=== PATIENT | female | born 1945 | race Caucasian/White ===

== ENCOUNTER 2022-12-03 11:45 | Emergency (ER) | payer MEDICARE, BC ==
[~2022-12-03] VITALS: Ht 152.4 cm; Wt 66.0 kg
[~2022-12-03 11:45] MED LIST: AMLO5TAB16 PO; APIX5TAB3 PO; FAMO20TA10 PO; LORA10TA7 PO; ONDA-103; POTA-207 PO
[2022-12-03 12:26] VITALS: BP 115/76; PULSE 66; TEMP 97.9; O2SAT 100
[2022-12-03] MEDS ORDERED: acetaminophen 325mg tablet PO STA (14:30)
[2022-12-03] MEDS ORDERED: ondansetron/PF 4mg/2ml inj IV ONE (14:40)
[2022-12-03] MEDS ORDERED: morphine 4 MG/ML inj SYRINge IV ONE (14:40)
[2022-12-03] MEDS: normal saline 500ml IV soln 500 ML IV SCH ×2 (15:07→16:30)
[2022-12-03 15:08] VITALS: RESP 16
[2022-12-03 15:50] LABS: BASOPHILS # (AUTO) 0.1 X10'3 (0-0.2); BASOPHILS % (AUTO) 0.7 % (0-1); EOSINOPHILS # (AUTO) 0.3 X10'3 (0-0.9); EOSINOPHILS % (AUTO) 3.1 % (0-6); HEMATOCRIT 31.6 % (35.0-45.0); HEMOGLOBIN 10.6 g/dl (12.0-16.0); LYMPHOCYTES # (AUTO) 2.4 X10'3 (1.1-4.8); LYMPHOCYTES % (AUTO) 28.2 % (21-51); MEAN CORPUSCULAR HEMOGLOBIN 31.5 PG (27.0-31.0); MEAN CORPUSCULAR HGB CONC 33.7 g/dL (33.0-36.5); MEAN CORPUSCULAR VOLUME 93.6 FL (78-98); MEAN PLATELET VOLUME 7.3 FL (7.4-10.4); MONOCYTES # (AUTO) 0.6 X10'3 (0-0.9); MONOCYTES % (AUTO) 7.1 % (2-12); NEUTROPHILS # (AUTO) 5.2 X10'3 (1.8-7.7); NEUTROPHILS % (AUTO) 60.9 % (42-75); PLATELET COUNT 172 X10'3 (140-440); RED BLOOD COUNT 3.38 X10'6 (4.20-5.60); RED CELL DISTRIBUTION WIDTH 15.5 % (11.5-14.5); WHITE BLOOD COUNT 8.6 X10'3 (4.5-11.0)
[2022-12-03 16:00] LABS: ALANINE AMINOTRANSFERASE 15 U/L (12-78); ALBUMIN 2.9 G/DL (3.4-5.0); ALBUMIN/GLOBULIN RATIO 0.6 (1.1-1.5); ALKALINE PHOSPHATASE 97 IU/L (46-116); ANION GAP 8 (8-16); ASPARTATE AMINO TRANSFERASE 20 U/L (10-37); BILIRUBIN,TOTAL 0.2 MG/DL (0.1-1.0); BLOOD UREA NITROGEN 24 MG/DL (7-18); CALCIUM 10.5 MG/DL (8.5-10.1); CHLORIDE 99 MMOL/L (99-107); CREATININE 1.72 MG/DL (0.40-0.90); GLUCOSE 99 MG/DL (70-104); MAGNESIUM 1.7 MG/DL (1.5-2.4); SODIUM 131 MMOL/L (135-145); TOTAL PROTEIN 7.4 G/DL (6.4-8.2); eCRCL 20 ML/MIN; eGFR 29 ML/MIN
[2022-12-03] MEDS ORDERED: normal saline 1000ML IV soln IVB ONE (16:30)
== END 2022-12-03 18:17 | disposition home or self-care (01) ==
LOC: ER 11:46
DX: K63.2 Fistula of intestine (principal)
CPT/HCPCS: 36415; 80053; 83605; 83735; 84145; 85025; 87040; 96374; 96375; 99284; J2270; J2405; J7030; J7040; A4398; A4421; A6449

== ENCOUNTER 2023-07-12 19:26 | Inpatient (IN) | payer MEDICARE, BC ==
[~2023-07-12] VITALS: Ht 167.6 cm; Wt 64.0 kg
[2023-07-12] VITALS (8 sets, daily range): BP systolic 68–121; BP diastolic 36–51; PULSE 69–82; RESP 16–20; TEMP 98–98.6
[~2023-07-12 19:26] MED LIST changes: +ADAL40SY SUBCUT; -AMLO5TAB16 PO; -APIX5TAB3 PO; +DOCU-148 PO; -FAMO20TA10 PO; -LORA10TA7 PO; -ONDA-103; +PANT40TA54 PO; -POTA-207 PO; +PROP20TA6 PO; +SODI100035 PO
[2023-07-12 20:38] LABS: LYMPHOCYTES # (AUTO) 2.5 X10'3 (1.1-4.8); NEUTROPHILS # (AUTO) 6.1 X10'3 (1.8-7.7); PLATELET COUNT 230 X10'3 (140-440); WHITE BLOOD COUNT 9.4 X10'3 (4.5-11.0)
[2023-07-12 20:40] LABS: BASOPHILS # (AUTO) 0.1 X10'3 (0-0.2); BASOPHILS % (AUTO) 1.4 % (0-1); EOSINOPHILS # (AUTO) 0.4 X10'3 (0-0.9); EOSINOPHILS % (AUTO) 3.8 % (0-6); LYMPHOCYTES % (AUTO) 26.2 % (21-51); MEAN CORPUSCULAR HEMOGLOBIN 31.3 PG (27.0-31.0); MEAN CORPUSCULAR HGB CONC 33.8 g/dL (33.0-36.5); MEAN CORPUSCULAR VOLUME 92.5 FL (78-98); MEAN PLATELET VOLUME 7.1 FL (7.4-10.4); MONOCYTES # (AUTO) 0.3 X10'3 (0-0.9); MONOCYTES % (AUTO) 3.2 % (2-12); NEUTROPHILS % (AUTO) 65.4 % (42-75); RED BLOOD COUNT 2.11 X10'6 (4.20-5.60); RED CELL DISTRIBUTION WIDTH 14.8 % (11.5-14.5)
[2023-07-12 20:49] LABS: APTT 34 SECONDS (22-32); INR 1.2 INR; PROTHROMBIN TIME 12.7 SECONDS (9.0-12.0)
[2023-07-12 20:54] LABS: ALANINE AMINOTRANSFERASE 8 U/L (12-78); ALBUMIN 2.1 G/DL (3.4-5.0); ALBUMIN/GLOBULIN RATIO 0.7 (1.1-1.5); ALKALINE PHOSPHATASE 55 IU/L (46-116); ANION GAP 6 (8-16); ASPARTATE AMINO TRANSFERASE 10 U/L (10-37); BILIRUBIN,TOTAL 0.4 MG/DL (0.1-1.0); BLOOD UREA NITROGEN 55 MG/DL (7-18); BUN/CREATININE RATIO 30.9 (10.0-20.0); CALCIUM 8.1 MG/DL (8.5-10.1); CHLORIDE 104 MMOL/L (99-107); CREATININE 1.78 MG/DL (0.40-0.90); GLUCOSE 154 MG/DL (70-104); SODIUM 132 MMOL/L (135-145); TOTAL CARBON DIOXIDE 21.8 MMOL/L (24-32); TOTAL PROTEIN 5.3 G/DL (6.4-8.2); eGFR 28 ML/MIN
[2023-07-12 21:01] LABS: HEMATOCRIT 19.5 % (35.0-45.0); HEMOGLOBIN 6.6 g/dl (12.0-16.0)
[2023-07-12] MEDS ORDERED: pantoprazole 40mg IV 80 MG in normal saline 100ml IV soln 100 ML IV ONE (22:45)
[2023-07-12] MEDS: pantoprazole 40 MG vial IV ONE (22:50)
[2023-07-12 23:03] LABS: TOTAL CELLS COUNTED 100
[2023-07-12 23:05] LABS: PLATELET ESTIMATE NORMAL; TEAR DROP CELLS FEW
[2023-07-12] MEDS ORDERED: magnesium hydroxide 30ml (MOM) UD suspension PO PRN (23:15)
[2023-07-12] MEDS ORDERED: magnesium Cl slow-release 64mg tablet PO PRN (23:15)
[2023-07-12] MEDS ORDERED: potassium Cl 20 mEq SR tablet PO PRN ×2 (23:15)
[2023-07-12] MEDS ORDERED: acetaminophen 325mg tablet PO PRN ×2 (23:15)
[2023-07-12] MEDS ORDERED: magnesium 4gm in 100ml NS 100 ML IV PRN (23:15)
[2023-07-12] MEDS ORDERED: magnesium 2GM in 50ml NS 50 ML IV PRN (23:15)
[2023-07-12] MEDS ORDERED: morphine 2 MG/ML inj. syringe IV PRN (23:15)
[2023-07-12] MEDS ORDERED: metoclopramide 5 mg/ml inj IV PRN (23:15)
[2023-07-12] MEDS ORDERED: mag hydrox/Alum hydrox/simeth 30ml oral suspension PO PRN (23:15)
[2023-07-12] MEDS ORDERED: potassium Cl 40MEQ/1/2NS 520ml 520 ML IV PRN (23:15)
[2023-07-12] MEDS ORDERED: ondansetron/PF 4mg/2ml inj IV PRN (23:15)
[2023-07-12] MEDS ORDERED: HYDROcodone/acetaminophen 10/325mg tab PO PRN (23:15)
[2023-07-12] MEDS ORDERED: ondansetron 4mg rapidly disintigrating tab PO PRN (23:15)
[2023-07-12] MEDS ORDERED: HYDROcodone/acetaminophen 5mg/325mg tablet PO PRN (23:15)
[2023-07-12 23:49] LABS: BILIRUBIN,URINE NEGATIVE (Neg); CLARITY,URINE CLOUDY (Clear); COLOR,URINE YELLOW (Yellow); GLUCOSE, URINE NEGATIVE (Neg); KETONES,URINE NEGATIVE (Neg); LEUKOCYTE ESTERASE ,URINE MODERATE (Neg); NITRITES, URINE NEGATIVE (Neg); OCCULT BLOOD,URINE SMALL (Neg); PROTEIN,URINE NEGATIVE (Neg); UROBILINOGEN,URINE 0.2 E.U/dL (0.2-1.0)
[2023-07-12 23:52] LABS: UA COLLECTION TYPE FOLEY CATH
[2023-07-13] VITALS (20 sets, daily range): BP systolic 93–158; BP diastolic 36–70; PULSE 69–94; RESP 13–21; TEMP 97.6–99.1; O2SAT 92–100
[2023-07-13] MEDS: normal saline 1000ml 1,000 ML IV SCH (00:05)
[2023-07-13] MEDS: pantoprazole 40MG/NS 100ML BAG 100 ML IV SCH (00:05)
[2023-07-13 00:10] LABS: BACTERIA,URINE 2+ /HPF (Neg); SQUAMOUS EPITHELIAL CELL,UR FEW /LPF (FEW); TRANSITIONAL EPI CELLS,URINE FEW /HPF; URIC ACID CRYSTALS 2+ /HPF (NEGATIVE)
[2023-07-13 00:11] LABS: TRICHOMONAS,URINE FEW /HPF (NEGATIVE); YEAST MANY /HPF (NEGATIVE)
[2023-07-13] MEDS ORDERED: DAPT500V IV (00:19)
[2023-07-13] MEDS ORDERED: CETI10CA PO (00:19)
[2023-07-13] MEDS ORDERED: OMEP20TA43 PO (00:19)
[2023-07-13] MEDS ORDERED: DIPH25TA81 PO (00:19)
[2023-07-13] MEDS ORDERED: MULT-1085 PO (00:19)
[2023-07-13] MEDS ORDERED: DOCU100C41 PO (00:19)
[2023-07-13] MEDS ORDERED: FURO-150 PO (00:19)
[2023-07-13] MEDS ORDERED: [UNRECOGNIZED DRUG - CODE] IV (00:19)
[2023-07-13] MEDS ORDERED: TRAM50TA2 PO (00:19)
[2023-07-13] MEDS ORDERED: CARV3.122 PO (00:19)
[2023-07-13] MEDS ORDERED: ONDA-103 PO (00:19)
[2023-07-13] MEDS ORDERED: PRED10TA23 PO (00:19)
[2023-07-13] MEDS ORDERED: NORepinephrine inj. 32 MG in normal saline 250ml IV soln 218 ML IV PRN (01:45)
[2023-07-13] MEDS: NORepinephrine 8mg/ 250ml NS 250 ML IV SCH (02:23)
[2023-07-13 02:25] LABS: HEMATOCRIT 25.3 % (35.0-45.0); HEMOGLOBIN 8.5 g/dl (12.0-16.0); MEAN CORPUSCULAR HEMOGLOBIN 31.4 PG (27.0-31.0); MEAN CORPUSCULAR HGB CONC 33.7 g/dL (33.0-36.5); MEAN CORPUSCULAR VOLUME 93.3 FL (78-98); MEAN PLATELET VOLUME 7.2 FL (7.4-10.4); PLATELET COUNT 179 X10'3 (140-440); RED BLOOD COUNT 2.71 X10'6 (4.20-5.60); RED CELL DISTRIBUTION WIDTH 14.7 % (11.5-14.5); WHITE BLOOD COUNT 8.9 X10'3 (4.5-11.0)
[2023-07-13] MEDS: morphine 2 MG/ML inj. syringe IV PRN (07:49)
[2023-07-13 07:52] LABS: BASOPHILS # (AUTO) 0.2 X10'3 (0-0.2); BASOPHILS % (AUTO) 1.9 % (0-1); EOSINOPHILS # (AUTO) 0.3 X10'3 (0-0.9); EOSINOPHILS % (AUTO) 2.5 % (0-6); HEMATOCRIT 30.7 % (35.0-45.0); HEMOGLOBIN 10.6 g/dl (12.0-16.0); LYMPHOCYTES # (AUTO) 3.4 X10'3 (1.1-4.8); LYMPHOCYTES % (AUTO) 32.9 % (21-51); MEAN CORPUSCULAR HEMOGLOBIN 31.7 PG (27.0-31.0); MEAN CORPUSCULAR HGB CONC 34.6 g/dL (33.0-36.5); MEAN CORPUSCULAR VOLUME 91.8 FL (78-98); MEAN PLATELET VOLUME 7.3 FL (7.4-10.4); MONOCYTES # (AUTO) 0.7 X10'3 (0-0.9); MONOCYTES % (AUTO) 6.8 % (2-12); NEUTROPHILS # (AUTO) 5.8 X10'3 (1.8-7.7); NEUTROPHILS % (AUTO) 55.9 % (42-75); PLATELET COUNT 177 X10'3 (140-440); RED BLOOD COUNT 3.35 X10'6 (4.20-5.60); RED CELL DISTRIBUTION WIDTH 14.4 % (11.5-14.5); WHITE BLOOD COUNT 10.4 X10'3 (4.5-11.0)
[2023-07-13] MEDS: K and/or MAG REPLACEMENT MC SCH (08:00)
[2023-07-13 08:07] LABS: APTT 31 SECONDS (22-32); INR 1.2 INR; PROTHROMBIN TIME 12.1 SECONDS (9.0-12.0)
[2023-07-13 08:12] LABS: BILIRUBIN,URINE NEGATIVE (Neg); CLARITY,URINE CLOUDY (Clear); COLOR,URINE YELLOW (Yellow); GLUCOSE, URINE NEGATIVE (Neg); KETONES,URINE NEGATIVE (Neg); LEUKOCYTE ESTERASE ,URINE SMALL (Neg); NITRITES, URINE NEGATIVE (Neg); OCCULT BLOOD,URINE SMALL (Neg); PROTEIN,URINE NEGATIVE (Neg); UROBILINOGEN,URINE 0.2 E.U/dL (0.2-1.0)
[2023-07-13 08:13] LABS: UA COLLECTION TYPE FOLEY CATH
[2023-07-13 08:22] LABS: ALANINE AMINOTRANSFERASE 8 U/L (12-78); ALBUMIN 2.1 G/DL (3.4-5.0); ALBUMIN/GLOBULIN RATIO 0.7 (1.1-1.5); ALKALINE PHOSPHATASE 50 IU/L (46-116); ANION GAP 9 (8-16); ASPARTATE AMINO TRANSFERASE 13 U/L (10-37); BILIRUBIN,TOTAL 0.6 MG/DL (0.1-1.0); BLOOD UREA NITROGEN 66 MG/DL (7-18); BUN/CREATININE RATIO 39.1 (10.0-20.0); CALCIUM 8.1 MG/DL (8.5-10.1); CHLORIDE 109 MMOL/L (99-107); CREATININE 1.69 MG/DL (0.40-0.90); GLUCOSE 102 MG/DL (70-104); MAGNESIUM 1.5 MG/DL (1.5-2.4); PHOSPHORUS 4.7 MG/DL (2.3-4.5); POTASSIUM 4.1 MMOL/L (3.5-5.1); SODIUM 136 MMOL/L (135-145); TOTAL CARBON DIOXIDE 18.2 MMOL/L (24-32); TOTAL PROTEIN 5.2 G/DL (6.4-8.2); eCRCL 27 ML/MIN; eGFR 29 ML/MIN
[2023-07-13 08:27] LABS: BACTERIA,URINE FEW /HPF (Neg)
[2023-07-13 08:28] LABS: MUCUS STRANDS NONE SEEN /LPF (Neg); RENAL CELLS, URINE FEW /HPF; SQUAMOUS EPITHELIAL CELL,UR FEW /LPF (FEW); URIC ACID CRYSTALS 2+ /HPF (NEGATIVE); WBC CLUMPS,URINE FEW /HPF (NEGATIVE); YEAST MANY /HPF (NEGATIVE)
[2023-07-13 09:17] LABS: C-REACTIVE PROTEIN 0.93 MG/DL (0.0-0.5)
[2023-07-13] MEDS: DAPTOmycin inj. 500 MG in normal saline 100ml IV soln 100 ML IV SCH (09:30)
[2023-07-13] MEDS ORDERED: LIDOcaine 2% Viscous 15ml cup ONE (12:57)
[2023-07-13] MEDS ORDERED: fentaNYL/PF 50MCG/1 ML 2ML syringe ONE (12:57)
[2023-07-13] MEDS ORDERED: MIDAZolam 1 MG/ML 5ML VIAL ONE (12:57)
[2023-07-13 19:33] LABS: HEMATOCRIT 33.5 % (35.0-45.0); HEMOGLOBIN 11.2 g/dl (12.0-16.0); MEAN CORPUSCULAR HGB CONC 33.5 g/dL (33.0-36.5); MEAN CORPUSCULAR VOLUME 92.5 FL (78-98); MEAN PLATELET VOLUME 7.5 FL (7.4-10.4); PLATELET COUNT 185 X10'3 (140-440); RED BLOOD COUNT 3.62 X10'6 (4.20-5.60); RED CELL DISTRIBUTION WIDTH 15.2 % (11.5-14.5); WHITE BLOOD COUNT 11.8 X10'3 (4.5-11.0)
[2023-07-13] MEDS: pantoprazole 40 MG vial IV SCH (20:45)
[2023-07-13] MEDS: diphenhydrAMINE 25mg capsule PO PRN (20:45)
[2023-07-14] VITALS (9 sets, daily range): BP systolic 110–141; BP diastolic 43–73; PULSE 64–82; RESP 12–18; TEMP 97.5–98.6; O2SAT 97–99
[2023-07-14 06:01] LABS: BASOPHILS # (AUTO) 0.3 X10'3 (0-0.2); BASOPHILS % (AUTO) 2.6 % (0-1); EOSINOPHILS % (AUTO) 10.4 % (0-6); HEMATOCRIT 28.4 % (35.0-45.0); HEMOGLOBIN 9.5 g/dl (12.0-16.0); LYMPHOCYTES # (AUTO) 2.6 X10'3 (1.1-4.8); LYMPHOCYTES % (AUTO) 26.3 % (21-51); MEAN CORPUSCULAR HEMOGLOBIN 31.4 PG (27.0-31.0); MEAN CORPUSCULAR HGB CONC 33.5 g/dL (33.0-36.5); MEAN CORPUSCULAR VOLUME 93.7 FL (78-98); MEAN PLATELET VOLUME 7.1 FL (7.4-10.4); MONOCYTES # (AUTO) 0.4 X10'3 (0-0.9); MONOCYTES % (AUTO) 3.9 % (2-12); NEUTROPHILS # (AUTO) 5.6 X10'3 (1.8-7.7); NEUTROPHILS % (AUTO) 56.8 % (42-75); PLATELET COUNT 180 X10'3 (140-440); RED BLOOD COUNT 3.03 X10'6 (4.20-5.60); RED CELL DISTRIBUTION WIDTH 15.4 % (11.5-14.5); WHITE BLOOD COUNT 9.8 X10'3 (4.5-11.0)
[2023-07-14 06:02] LABS: APTT 29 SECONDS (22-32); INR 1.1 INR; PROTHROMBIN TIME 11.7 SECONDS (9.0-12.0)
[2023-07-14 06:06] LABS: ALBUMIN 2.1 G/DL (3.4-5.0); ALBUMIN/GLOBULIN RATIO 0.7 (1.1-1.5); ALKALINE PHOSPHATASE 46 IU/L (46-116); ANION GAP 6 (8-16); ASPARTATE AMINO TRANSFERASE 16 U/L (10-37); BILIRUBIN,TOTAL 0.5 MG/DL (0.1-1.0); BLOOD UREA NITROGEN 54 MG/DL (7-18); BUN/CREATININE RATIO 36.7 (10.0-20.0); CALCIUM 8.6 MG/DL (8.5-10.1); CHLORIDE 107 MMOL/L (99-107); CREATINE KINASE 63 U/L (26-192); CREATININE 1.47 MG/DL (0.40-0.90); GLUCOSE 85 MG/DL (70-104); MAGNESIUM 1.6 MG/DL (1.5-2.4); PHOSPHORUS 4.1 MG/DL (2.3-4.5); POTASSIUM 4.1 MMOL/L (3.5-5.1); SODIUM 132 MMOL/L (135-145); TOTAL CARBON DIOXIDE 19.5 MMOL/L (24-32); TOTAL PROTEIN 5.1 G/DL (6.4-8.2); eCRCL 30 ML/MIN; eGFR 35 ML/MIN
[2023-07-14 06:07] LABS: ALANINE AMINOTRANSFERASE < 6 U/L (12-78)
[2023-07-14] MEDS ORDERED: emollient combination-Eucerin 200 ML LOTION TP SCH (11:30)
[2023-07-14] MEDS ORDERED: aspirin 81mg, enteric-coated 1 TAB TABLET.DR PO SCH (12:50)
[2023-07-14] MEDS: DAPTOmycin inj. 500 MG in normal saline 100ml IV soln 100 ML IV SCH (12:55)
[2023-07-14] MEDS: aspirin 81mg tab.chew PO ONE (14:17)
[2023-07-15] VITALS (8 sets, daily range): BP systolic 113–147; BP diastolic 34–56; PULSE 70–85; RESP 12–18; TEMP 97.4–98.7; O2SAT 96–98
[2023-07-15 06:01] LABS: APTT 31 SECONDS (22-32); INR 1.1 INR; PROTHROMBIN TIME 11.6 SECONDS (9.0-12.0)
[2023-07-15 06:08] LABS: BASOPHILS # (AUTO) 0.2 X10'3 (0-0.2); BASOPHILS % (AUTO) 1.7 % (0-1); EOSINOPHILS # (AUTO) 1.9 X10'3 (0-0.9); EOSINOPHILS % (AUTO) 19.7 % (0-6); HEMATOCRIT 28.4 % (35.0-45.0); HEMOGLOBIN 9.7 g/dl (12.0-16.0); LYMPHOCYTES % (AUTO) 20.9 % (21-51); MEAN CORPUSCULAR HEMOGLOBIN 31.8 PG (27.0-31.0); MEAN CORPUSCULAR HGB CONC 34.3 g/dL (33.0-36.5); MEAN CORPUSCULAR VOLUME 92.4 FL (78-98); MEAN PLATELET VOLUME 7.4 FL (7.4-10.4); MONOCYTES # (AUTO) 0.6 X10'3 (0-0.9); MONOCYTES % (AUTO) 6.1 % (2-12); NEUTROPHILS % (AUTO) 51.6 % (42-75); PLATELET COUNT 190 X10'3 (140-440); RED BLOOD COUNT 3.07 X10'6 (4.20-5.60); WHITE BLOOD COUNT 9.6 X10'3 (4.5-11.0)
[2023-07-15 06:18] LABS: ALANINE AMINOTRANSFERASE 12 U/L (12-78); ALBUMIN 2.2 G/DL (3.4-5.0); ALBUMIN/GLOBULIN RATIO 0.7 (1.1-1.5); ALKALINE PHOSPHATASE 51 IU/L (46-116); ANION GAP 8 (8-16); ASPARTATE AMINO TRANSFERASE 24 U/L (10-37); BILIRUBIN,TOTAL 0.5 MG/DL (0.1-1.0); BLOOD UREA NITROGEN 37 MG/DL (7-18); BUN/CREATININE RATIO 25.2 (10.0-20.0); CALCIUM 8.6 MG/DL (8.5-10.1); CHLORIDE 106 MMOL/L (99-107); CREATININE 1.47 MG/DL (0.40-0.90); GLUCOSE 85 MG/DL (70-104); MAGNESIUM 1.5 MG/DL (1.5-2.4); PHOSPHORUS 3.9 MG/DL (2.3-4.5); POTASSIUM 3.9 MMOL/L (3.5-5.1); SODIUM 133 MMOL/L (135-145); TOTAL CARBON DIOXIDE 19.1 MMOL/L (24-32); TOTAL PROTEIN 5.5 G/DL (6.4-8.2); eCRCL 30 ML/MIN; eGFR 35 ML/MIN
[2023-07-15 06:30] LABS: TOTAL CELLS COUNTED 100
[2023-07-15 06:33] LABS: BURR CELLS FEW; ELLIPTOCYTES FEW; PLATELET ESTIMATE NORMAL; TEAR DROP CELLS FEW
[2023-07-15] MEDS: aspirin 81mg tab.chew PO SCH (08:22)
[2023-07-15] MEDS: mineral oil/petrolatum, white cream 60gm jar TP SCH (08:23)
[2023-07-15] MEDS: diphenhydrAMINE 2%/zinc acetate cream TP SCH (13:30)
[2023-07-16] VITALS (9 sets, daily range): BP systolic 95–142; BP diastolic 41–111; PULSE 67–79; RESP 13–20; TEMP 98–98.8; O2SAT 95–99
[2023-07-16] MEDS: diphenhydrAMINE 25 MG/10 ML UD oral solution PO PRN (09:04)
[2023-07-17 02:00] VITALS: BP 122/51; PULSE 63; RESP 18; TEMP 98.9; O2SAT 100
[2023-07-17 06:00] VITALS: BP 124/60; PULSE 66; RESP 18; TEMP 98.3; O2SAT 97
[2023-07-17 07:01] LABS: BASOPHILS # (AUTO) 0.2 X10'3 (0-0.2); BASOPHILS % (AUTO) 2.1 % (0-1); EOSINOPHILS # (AUTO) 1.4 X10'3 (0-0.9); HEMOGLOBIN 9.8 g/dl (12.0-16.0); LYMPHOCYTES # (AUTO) 2.1 X10'3 (1.1-4.8); MEAN PLATELET VOLUME 7.2 FL (7.4-10.4); MONOCYTES # (AUTO) 0.6 X10'3 (0-0.9); NEUTROPHILS # (AUTO) 3.7 X10'3 (1.8-7.7)
[2023-07-17 07:05] LABS: EOSINOPHILS % (AUTO) 17.7 % (0-6); HEMATOCRIT 28.8 % (35.0-45.0); LYMPHOCYTES % (AUTO) 26.5 % (21-51); MEAN CORPUSCULAR HEMOGLOBIN 31.6 PG (27.0-31.0); MEAN CORPUSCULAR VOLUME 92.9 FL (78-98); MONOCYTES % (AUTO) 7.5 % (2-12); NEUTROPHILS % (AUTO) 46.2 % (42-75); PLATELET COUNT 183 X10'3 (140-440); RED CELL DISTRIBUTION WIDTH 14.9 % (11.5-14.5); WHITE BLOOD COUNT 7.9 X10'3 (4.5-11.0)
[2023-07-17 07:18] LABS: INR 1.1 INR; PROTHROMBIN TIME 11.6 SECONDS (9.0-12.0)
[2023-07-17 07:23] LABS: ALANINE AMINOTRANSFERASE 11 U/L (12-78); ALBUMIN 2.3 G/DL (3.4-5.0); ALBUMIN/GLOBULIN RATIO 0.7 (1.1-1.5); ALKALINE PHOSPHATASE 61 IU/L (46-116); ANION GAP 6 (8-16); ASPARTATE AMINO TRANSFERASE 23 U/L (10-37); BILIRUBIN,TOTAL 0.4 MG/DL (0.1-1.0); BLOOD UREA NITROGEN 18 MG/DL (7-18); BUN/CREATININE RATIO 12.2 (10.0-20.0); CALCIUM 8.8 MG/DL (8.5-10.1); CHLORIDE 105 MMOL/L (99-107); CREATINE KINASE 53 U/L (26-192); CREATININE 1.47 MG/DL (0.40-0.90); GLUCOSE 87 MG/DL (70-104); MAGNESIUM 1.6 MG/DL (1.5-2.4); POTASSIUM 4.1 MMOL/L (3.5-5.1); SODIUM 134 MMOL/L (135-145); TOTAL CARBON DIOXIDE 22.6 MMOL/L (24-32); TOTAL PROTEIN 5.7 G/DL (6.4-8.2); eCRCL 30 ML/MIN; eGFR 35 ML/MIN
[2023-07-17 08:00] VITALS: RESP 18; O2SAT 97
[2023-07-17 11:00] VITALS: BP 116/51; PULSE 73; RESP 18; TEMP 97.7; O2SAT 97
[2023-07-17 15:00] VITALS: BP 124/59; PULSE 62; RESP 14; TEMP 97.2; O2SAT 99
== END 2023-07-17 16:20 | DRG 368 ==
LOC: ER 19:30 → ED HOLD 23:21 → EDBEDREQ 07-13 14:50 → PCU 3S 07-13 15:31
PROVIDERS: ADMIT Surgery; ATTEND Internal Medicine
PROC: 30233N1 Transfusion of Nonautologous Red Blood Cells into Peripheral Vein, Percutaneous Approach (ICD-10-PCS; 2023-07-12)
PROC: 0DJ08ZZ Inspection of Upper Intestinal Tract, Via Natural or Artificial Opening Endoscopic (ICD-10-PCS; principal; 2023-07-13)
DX: K21.01 Gastro-esophageal reflux disease with esophagitis, with bleeding (principal); E43 Unspecified severe protein-calorie malnutrition; I63.89 Other cerebral infarction; G93.41 Metabolic encephalopathy; R57.8 Other shock; D62 Acute posthemorrhagic anemia; N18.4 Chronic kidney disease, stage 4 (severe); I38 Endocarditis, valve unspecified; K25.7 Chronic gastric ulcer without hemorrhage or perforation; K44.9 Diaphragmatic hernia without obstruction or gangrene; R29.706 NIHSS score 6; Z66 Do not resuscitate; I12.9 Hypertensive chronic kidney disease with stage 1 through stage 4 chronic kidney disease, or unspecified chronic kidney disease; I27.20 Pulmonary hypertension, unspecified; B37.9 Candidiasis, unspecified; Z93.3 Colostomy status; Z88.2 Allergy status to sulfonamides; Z91.048 Other nonmedicinal substance allergy status; Z90.49 Acquired absence of other specified parts of digestive tract; Z68.22 Body mass index [BMI] 22.0-22.9, adult
CPT/HCPCS: 36415; 36430; 43235; 70450; 70544; 70551; 71045; 80053; 81001; 82550; 82948; 83605; 83735; 84100; 85007; 85025; 85027; 85610; 85651; 85730; 86140; 86885; 86900; 86901; 86920; 87040; 87077; 87081; 87088; 88305; 88342; 93005; 93308; 97110; 97161; 97530; 99152; 99291; A4333; A4371; A4421; A4620; A4649; A6213; A6250; A6449; C9113; G0378; J0878; J2250; J2270; J3010; J3490; J7030; J7040; J7050; P9016; Q0163

== ENCOUNTER 2023-08-09 17:08 | Emergency (ER) | payer MEDICARE, BC ==
[~2023-08-09] VITALS: Ht 167.6 cm; Wt 73.0 kg
[~2023-08-09 17:08] MED LIST changes: -ADAL40SY SUBCUT; +CARV3.122 PO; +CETI10CA PO; +DAPT500V IV; +DIPH25TA81 PO; -DOCU-148 PO; +DOCU100C41 PO; +FURO-150 PO; +MULT-1085 PO; +OMEP20TA43 PO; +ONDA-103 PO; -PANT40TA54 PO; +PRED10TA23 PO; -PROP20TA6 PO; -SODI100035 PO; +TRAM50TA2 PO; +[UNRECOGNIZED DRUG - CODE] IV
[2023-08-09 17:52] LABS: BASOPHILS # (AUTO) 0.1 X10'3 (0-0.2); BASOPHILS % (AUTO) 1.3 % (0-1); EOSINOPHILS # (AUTO) 1.1 X10'3 (0-0.9); EOSINOPHILS % (AUTO) 15.5 % (0-6); HEMOGLOBIN 7.4 g/dl (12.0-16.0); LYMPHOCYTES # (AUTO) 1.2 X10'3 (1.1-4.8); LYMPHOCYTES % (AUTO) 15.9 % (21-51); MEAN CORPUSCULAR HEMOGLOBIN 32.3 PG (27.0-31.0); MEAN CORPUSCULAR HGB CONC 33.7 g/dL (33.0-36.5); MEAN CORPUSCULAR VOLUME 95.9 FL (78-98); MEAN PLATELET VOLUME 7.6 FL (7.4-10.4); MONOCYTES # (AUTO) 0.4 X10'3 (0-0.9); NEUTROPHILS # (AUTO) 4.5 X10'3 (1.8-7.7); NEUTROPHILS % (AUTO) 61.3 % (42-75); PLATELET COUNT 194 X10'3 (140-440); RED BLOOD COUNT 2.29 X10'6 (4.20-5.60); RED CELL DISTRIBUTION WIDTH 17.9 % (11.5-14.5); WHITE BLOOD COUNT 7.4 X10'3 (4.5-11.0)
[2023-08-09 17:56] LABS: ALBUMIN 2.5 G/DL (3.4-5.0); ANION GAP 8 (8-16); BLOOD UREA NITROGEN 44 MG/DL (7-18); BUN/CREATININE RATIO 29.5 (10.0-20.0); CALCIUM 8.9 MG/DL (8.5-10.1); CHLORIDE 106 MMOL/L (99-107); CREATININE 1.49 MG/DL (0.40-0.90); GLUCOSE 112 MG/DL (70-104); SODIUM 138 MMOL/L (135-145); TOTAL CARBON DIOXIDE 24.2 MMOL/L (24-32); eCRCL 30 ML/MIN; eGFR 34 ML/MIN
[2023-08-09 21:06] VITALS: BP 118/53; PULSE 89; RESP 19; TEMP 98.5; O2SAT 98
== END 2023-08-09 21:08 | disposition home or self-care (01) ==
LOC: ER 17:08
DX: D64.9 Anemia, unspecified (principal); I12.9 Hypertensive chronic kidney disease with stage 1 through stage 4 chronic kidney disease, or unspecified chronic kidney disease; N18.9 Chronic kidney disease, unspecified; Z88.1 Allergy status to other antibiotic agents; Z88.2 Allergy status to sulfonamides
CPT/HCPCS: 36415; 80048; 85025; 86885; 86900; 86901; 99284